=== PATIENT | female | born 1990 | race Caucasian/White ===

== ENCOUNTER 2016-05-31 12:06 | Emergency (ER) | payer SELFPAY ==
[2016-05-31 12:06] VITALS: BP 131/78
[2016-05-31 12:11] VITALS: BMI 32.3
--- NOTE | 2016-05-31 12:29 | DR.GENAD ---
HPI - PCP Primary Care Physician: goncalves - Complaint/Symptoms Chief Complaint:: patient has a hx of right ovary being enlarged that her family doctor is aware of. - Nurses notes reviewed Nurses Notes Review: Yes - Source History Provided: Patient - Mode of Arrival Mode of Arrival: Ambulatory - Timing Onset of Chief Complaint: 05/31/16 Came on: Suddenly - Duration Duration: Intermittent Duration: Hours - Location Location: right lower quadrant - Severity Severity: Moderate - Modifying Factors Worsens:: nothing - Associated Signs and Symptoms Associated Signs and Symptoms: nausea - Other History Other History: Hx of this since age 10, has not followed up with OBGYN PM - [facility] Past Medical History: No Past Surgical History: Yes Surgical History: Abdominal Surgery - Family History History of Family Medical Conditions: No - Social History Does patient currently use any type of tobacco product: No Have you used tobacco products in the last 12 months: No Type of Tobacco Use: None Does any household member use tobacco: No Alcohol Use: None Do you use any recreational Drugs:: No Lives With: Family Lives Where: Home - infectious screening In the last 2 months have you had wt loss of >10#?: NO Have you had fever, night sweats or hemotysis?: No Have you traveled outside the country in the last 6 months?: No Isolation: Standard ROS - Review of Systems Constitutional: No Symptoms Reported Eyes: No Symptoms Reported ENTM: No Symptoms Reported Respiratoy: No Symptoms Reported Cardiovascular: No Symptoms Reported Gastrointestinal/Abdominal: Abdominal Pain (right lower quadrant), Nausea, Vomiting Genitourinary: No Symptoms Reported Neurological: No Symptoms Reported Musculoskeletal: No Symptoms Reported Integumentary: No Symptoms Reported Hematologic/Lymphatic: No Symptoms Reported Endocrine: No Symptoms Reported Psychiatric: No Symptoms Reported All Other Systems: Reviewed and Negative PE - Vital Signs Vitals: Temperature 97.7 F Respiratory Rate 16 Blood Pressure 131/78 - General Limitations: No Limitations General Appearance: Alert, In No Apparent Distress - Head Head Exam: Normal Inspection - Eyes Eye exam: EOMI. negative: Scleral Icterus, Conjunctival Injection - ENT External Ear Exam: Normal External Inspection - Neck Neck Exam: Normal Inspection, Full ROM, Trachea Midline - Abdominal Exam Abdominal Exam: Normal Inspection, Soft, Tenderness (RLQ). negative: Distention , Guarding, Rebound Abdominal Tenderness: RLQ - Extremities Extremities Exam: Normal Inspection, Full ROM - Back Back Exam: Normal Inspection - Neurologic Neurological Exam: Alert, Oriented X3, CN II-XII Intact - Psychiatric Psychiatric Exam: Depressed - Skin Skin Exam: Intact, Normal Color ROR - Labs Reviewed Result Diagrams: 05/31/16 13:00 05/31/16 13:00 Laboratory: WBC 10.8 X10^3/uL (3.6-10.0) H 05/31/16 13:00 RBC 4.61 X10^6/uL (3.5-5.4) 05/31/16 13:00 Hgb 11.8 g/dL (12.0-16.0) L 05/31/16 13:00 Hct 35.8 % (36.0-47.0) L 05/31/16 13:00 MCV 77.6 fL (80.0-100.0) L 05/31/16 13:00 MCH 25.6 pg (27.0-34.0) L 05/31/16 13:00 MCHC 32.9 g/dL (33.0-35.0) L 05/31/16 13:00 RDW 14.7 % (11.6-16.5) 05/31/16 13:00 Plt Count 397 X10^3/uL (150.0-450.0) 05/31/16 13:00 Plt Count Comment Adequate (ADEQUATE) 05/31/16 13:00 MPV 7.4 fL (7.4-11.0) 05/31/16 13:00 Neut % 75.1 % (42.0-75.0) H 05/31/16 13:00 Lymph % 18.2 % (21.0-51.0) L 05/31/16 13:00 [place]y % 5.4 % (0.0-13.0) 05/31/16 13:00 Eos % 0.8 % (0.9-2.9) L 05/31/16 13:00 Baso % 0.5 % (0.2-1.0) 05/31/16 13:00 Neut # 8.1 x10^3/uL (2.2-4.8) H 05/31/16 13:00 Lymph # 2.0 X10^3/uL (1.3-2.9) 05/31/16 13:00 [place] # 0.6 x10^3/uL (0.3-0.8) 05/31/16 13:00 Eos # 0.1 x10^3/uL (0.0-0.2) 05/31/16 13:00 Baso # 0.0 X10^3/uL (0.0-0.1) 05/31/16 13:00 Absolute Nucleated RBC 0.0 /100WBC 05/31/16 13:00 Plt Morphology Comment Normal (NORMAL) 05/31/16 13:00 RBC Morphology Abnormal (NORMAL) A 05/31/16 13:00 Hypochromasia Slight A 05/31/16 13:00 Sodium 146 mmol/L (136-145) H 05/31/16 13:00 Corrected Sodium 147 mmol/L (136-145) H 05/31/16 13:00 Potassium 3.2 mmol/L (3.5-5.1) L 05/31/16 13:00 Chloride 108 mmol/L (98-107) H 05/31/16 13:00 Carbon Dioxide 23.3 mmol/L (21-32) 05/31/16 13:00 BUN 8 mg/dL (7-18) 05/31/16 13:00 Creatinine 1.13 mg/dL (0.55-1.02) H 05/31/16 13:00 Est GFR (MDRD) Af Amer > 60 (>60) 05/31/16 13:00 Est GFR (MDRD) Non-Af > 60 (>60) 05/31/16 13:00 Glucose 127 mg/dL (65-99) H 05/31/16 13:00 Calcium 8.6 mg/dL (8.5-10.1) 05/31/16 13:00 Corrected Calcium TNP 05/31/16 13:00 Total Bilirubin 0.50 mg/dL (0.2-1.0) 05/31/16 13:00 AST 19 Units/L (15-37) 05/31/16 13:00 ALT 20 Units/L (12-78) 05/31/16 13:00 Alkaline Phosphatase 88 Units/L (46-116) 05/31/16 13:00 Total Protein 8.1 g/dL (6.4-8.2) 05/31/16 13:00 Albumin 4.3 g/dL (3.4-5.0) 05/31/16 13:00 Globulin 3.8 g/dL (2.5-4.5) 05/31/16 13:00 Albumin/Globulin Ratio 1.1 Ratio (1.1-2.1) 05/31/16 13:00 HCG, Qual Negative <10 mIU/mL 05/31/16 13:00 - XRAY XRAY Interpreted by: Radiologist XRAY Findings: Pelvic US: normal - Diagnosis Discharge Problem: Pelvic cramping - Discharge Plan Condition: Stable Prescriptions: Indomethacin [Indocin Cap 25 mg] 25 mg PO TID #30 cap Prednisone 20 mg PO QAM #6 tab - Follow ups/Referrals Follow ups/Referrals: CADEN GONCALVES [Primary Care Provider] - 3 days - Instructions
[2016-05-31] MEDS ORDERED: ZOFRAN TAB 4 MG PO ONE (12:49)
[2016-05-31] MEDS ORDERED: TORADOL 60 MG VIAL IM ONE (12:49)
[2016-05-31] MEDS ORDERED: ZOFRAN INJ 4 MG VIAL ONE (12:52)
[2016-05-31] MEDS ORDERED: TORADOL 60 MG VIAL ONE (12:52)
[2016-05-31] MEDS ORDERED: ZOFRAN INJ 4 MG VIAL IM ONE (12:58)
[2016-05-31 13:18] LABS: BASOPHILS % (AUTO) 0.5 % (0.2-1.0); EOSINOPHILS # (AUTO) 0.1 x10^3/uL (0.0-0.2); EOSINOPHILS % (AUTO) 0.8 % (0.9-2.9); HEMATOCRIT 35.8 % (36.0-47.0); HEMOGLOBIN 11.8 g/dL (12.0-16.0); LYMPHOCYTES % (AUTO) 18.2 % (21.0-51.0); MEAN CORPUSCULAR HEMOGLOBIN 25.6 pg (27.0-34.0); MEAN CORPUSCULAR HGB CONC 32.9 g/dL (33.0-35.0); MEAN CORPUSCULAR VOLUME 77.6 fL (80.0-100.0); MEAN PLATELET VOLUME 7.4 fL (7.4-11.0); MONOCYTES # (AUTO) 0.6 x10^3/uL (0.3-0.8); MONOCYTES % (AUTO) 5.4 % (0.0-13.0); NEUTROPHILS # (AUTO) 8.1 x10^3/uL (2.2-4.8); NEUTROPHILS % (AUTO) 75.1 % (42.0-75.0); PLATELET COUNT 397 X10^3/uL (150.0-450.0); RED BLOOD COUNT 4.61 X10^6/uL (3.5-5.4); RED CELL DISTRIBUTION WIDTH 14.7 % (11.6-16.5); WHITE BLOOD COUNT 10.8 X10^3/uL (3.6-10.0)
[2016-05-31 13:26] LABS: ALANINE AMINOTRANSFERASE 20 Units/L (12-78); ALBUMIN 4.3 g/dL (3.4-5.0); ALKALINE PHOSPHATASE 88 Units/L (46-116); ASPARTATE AMINO TRANSFERASE 19 Units/L (15-37); BLOOD UREA NITROGEN 8 mg/dL (7-18); CALCIUM 8.6 mg/dL (8.5-10.1); CARBON DIOXIDE 23.3 mmol/L (21-32); CHLORIDE 108 mmol/L (98-107); COR NA(FOR HYPERGLY) 147 mmol/L (136-145); CREATININE 1.13 mg/dL (0.55-1.02); GLUCOSE 127 mg/dL (65-99); SODIUM 146 mmol/L (136-145); TOTAL PROTEIN 8.1 g/dL (6.4-8.2); eGFR BLACK RACES > 60 (>60); eGFR NON BLACK RACES > 60 (>60)
[2016-05-31 13:29] LABS: SERUM PREGNANCY TEST, QUAL NEGATIVE <10 mIU/mL
[2016-05-31 13:35] LABS: HYPOCHROMASIA SLIGHT; PLATELET MORPHOLOGY COMMENT NORMAL (NORMAL)
--- NOTE | 2016-05-31 14:35 | US ---
Ultrasound pelvis endovaginal Indication: Right lower quadrant pain. Technique: Dynamic grayscale and Doppler imaging through the pelvis using and endovaginal approach. Findings: Uterus measures 6.8 x 3.7 x 5.1 cm. The endometrium measures 4 mm in AP dimension. Normal flow seen to the ovaries. Follicular cysts are seen. The right ovary measures 3.6 x 2.4 x 2.9 cm. Th e left ovary measures 3.3 x 1.8 x 2.9 cm. No free fluid seen. Impression: Normal Pelvic ultrasound. Reported By:
[2016-05-31 15:30] LABS: BILIRUBIN,URINE NEGATIVE (NEGATIVE); BLOOD/HEMOGLOBIN,URINE 5+ (NEGATIVE); GLUCOSE, URINE NEGATIVE (NEGATIVE); KETONES,URINE 1+ (NEGATIVE); LEUKOCYTE ESTERASE ,URINE NEGATIVE (NEGATIVE); NITRITES,URINE NEGATIVE (NEGATIVE); PROTEIN,URINE 2+ (NEGATIVE); UROBILINOGEN,URINE NORMAL (NORMAL)
[2016-05-31 15:37] LABS: APPEARANCE,URINE TURBID (CLEAR); COLOR,URINE YELLOW (YELLOW); RBC,URINE TNTC /HPF (NEGATIVE); SQUAMOUS EPITHELIAL CELL,UR FEW /HPF (NEGATIVE)
[2016-05-31 15:38] LABS: BACTERIA,URINE 1+ /HPF (NEGATIVE)
== END 2016-05-31 14:53 | disposition home or self-care (01) ==
LOC: ER 12:22
DX: R10.2 Pelvic and perineal pain (principal)
CPT/HCPCS: 36415; 76830; 80053; 81001; 84703; 85025; 87086; 96372; 99282; 99283; J1885; J2405